=== PATIENT | female | born 2005 | race African-American/Black ===

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

== ENCOUNTER 2024-04-29 10:42 | Emergency (ER) | payer OTHER, SELFPAY ==
--- OUTSIDE RECORDS SUMMARY | 2024-04-29 10:45 | XMS_ITS | Data Portability ---
Author Organization [facility] Address [address] [place] [address] Care Team Providers Care Assignment Officer Name Role Phone SHYAM RUCKER Parts Picker Unavailable MERVAT JOSHI Primary Care Provider [phone] Assessment Encounter Date Assessment Date Assessment LastModified by Organization Details LastModified Time 03/19/2023 03/19/2023 Pt's case was discussed w/resident. Documentation was reviewed, and I agree w/resident's note. Dr. Byron Not available 03/23/2023 06:40:30 11/19/2023 11/19/2023 Pt's case was discussed w/resident. Documentation was reviewed, and I agree w/resident's note. Dr. Byron Not available 11/25/2023 21:50:54 12/10/2023 12/10/2023 Pt's case was discussed w/resident. Documentation was reviewed, and I agree w/resident's note. Dr. Byron Not available 12/16/2023 12:24:53 Plan of Treatment Reminders Order Date Submit Date Provider Last Modified By Organization Details Last Modified Time Details Appointments None recorded. Lab test, urine 2022 023 [email or web address] In-Office Order, Internal Use Only DO Not Attach Compendium DO Not Attach Compendium, Do Not Delete/merge, [id number] 22:24:43 chlamydia trachomatis + neisseria gonorrhoeae + trichomonas vaginalis DNA panel, JOHN+probe, unspecified specimen 2022 023 JUAN [facility], [address], [address], [place], [address], 3 03:08:53 HbA1c (hemoglobin A1c), blood 2022 023 [email or web address] In-Office Order, Internal Use Only DO Not Attach Compendium DO Not Attach Compendium, Do Not Delete/merge, [id number] 3 15:35:55 test, urine 2023 024 JUAN In-Office Order, Internal Use Only DO Not Attach Compendium DO Not Attach Compendium, Do Not Delete/merge, [id number] 4 17:19:12 RPR (rapid plasma reagin), serum 2023 024 [email or web address] e1 [facility], [address], [address], [place], [address], 4 09:19:51 HIV 1 + 2, meaningful use set 2023 024 [email or web address] e1 [facility], [address], [address], [place], [place], [address], 4 09:19:51 HBsAg (hepatitis B surface Ag), EIA, serum 2023 024 [email or web address] e1 [facility], [address], [address], [place], [address], 4 09:19:51 Hepatitis C IgG Ab, qual, serum 2023 024 [email or web address] e1 [facility], [address], [address], [place], [address], 4 09:19:52 vaginal pathogens panel, JOHN+probe, vaginal fluid 2023 024 JUAN [facility], [address], [address], [place], [address], 4 20:08:50 neisseria gonorrhoeae rRNA, QL, PCR, nasopharynx 2023 024 [place] [facility], [address], [address], [place], [address], 4 06:17:14 vaginal pathogens panel, JOHN+probe, vaginal fluid 2023 024 [place] [facility], [address], [address], [place], [address], 4 06:17:16 Referral None recorded. Procedures None recorded. Surgeries None recorded. Imaging None recorded. Medication Orders Nextstellis 3 mg-14.2 mg (28) tablet 2022 023 [email or web address] [email or web address] [id number], [address] , [place], [place], [id number], 4 19:34:52 Nextstellis 3 mg-14.2 mg (28) tablet 2023 024 [id number], [address] , [place], [place], [id number], 4 19:34:59 drospirenon e 3 mg-ethinyl estradiol 0.03 mg tablet 2023 024 [id number], [address] , [place], [place], [id number], 4 17:25:58 Patient TargetsNo targets recorded. Patient Instructions Encounter Date Encounter Id Patient Instructions Last Modified By Organization Details Last Modified Time 08/04/2022 [id number] Becky KOENIG Discussed with Lyn Rucker PA-C [email or web address] Not available 08/04/2022 16:31:23 03/19/2023 [id number] A healthy lifestyle: care instructions [email or web address] Not available 03/19/2023 16:20:53 06/08/2023 [id number] A healthy lifestyle: care instructions [email or web address] Not available 06/08/2023 15:34:47 Attending Physician Addendum I did not personally see or examine the patient with the resident. I was physically present to provide indirect supervision through entire encounter. I have reviewed the documentation and agree with the history, physical findings, work-up, and medical decision making as recorded. Isi Bella MD [email or web address] Not available 06/21/2023 16:39:24 Reason for Referral None Reported. Results Created Date Observation Date Name Description Value Unit Range Abnormal Flag Note LastModifiedBy Organization Detail LastModifiedTime 08/05/1908/06/2022 CT, NG, TRICH VAG BY JOHN chlamydia by JOHN Negati ve negati ve Not Available [facility] ([facility] [place] [place] [facility] [address] [place], [address], 08/06/2022 03:08:53 08/05/19 23 08/06/2022 CT, NG, TRICH VAG BY JOHN gonococcus by JOHN Negati ve negati ve Not Available [facility] ([facility] [place] [place] [facility] [address] [place], [address], 08/06/2022 03:08:53 08/05/19 23 08/06/2022 CT, NG, TRICH VAG BY JOHN trich vag by JOHN Negati ve negati ve Not Available [facility] ([facility] [place] [place] [facility] [address] [place], [address], 08/06/2022 03:08:53 08/05/19 23 08/04/2022 pregn jordyn test, urine HCG negati ve Not Available In-Office Order Internal Use Only DO Not Attach Compendium DO Not Attach Compendium, Do Not Delete/merge, [id number] 08/04/2022 16:22:29 03/19/20 23 03/19/2023 HbA1c (hemo globi n A1c), blood HbA1c 5.8 Not Available In-Office Order Internal Use Only DO Not Attach Compendium DO Not Attach Compendium, Do Not Delete/merge, [id number] 03/19/2023 15:17:25 06/08/19 24 06/08/2023 pregn jordyn test, urine HCG negati ve Not Available In-Office Order Internal Use Only DO Not Attach Compendium DO Not Attach Compendium, Do Not Delete/merge, [id number] 06/08/2023 15:34:21 11/20/19 24 11/22/2023 NUSWA B VAGIN ITIS PLUS (VG+) atopobium vaginae MODERA TE - 1 score Not Available [facility] ([facility] [place] [place] [facility] [address] [facility], [place], [address], 11/22/2023 20:08:50 11/20/19 24 11/22/2023 NUSWA B VAGIN ITIS PLUS (VG+) bvab 2 MODERA TE - 1 score Not Available [facility] ([facility] [place] [place] [facility] [address] [facility], [place], [address], 11/22/2023 20:08:50 11/20/19 24 11/22/2023 NUSWA B VAGIN ITIS PLUS (VG+) megasphaera 1 HIGH - 2 score abnormal Calcu late total score by berenice shelton the 3 indiv idual bacte rial vagin osis (BV) marke r score s toget her. Total score is inter prete d as follo ws: Total score 0-1: Indic ates the absen ce of BV. Total score 2: Indet ermin ate for BV. Addit ional clini andres data shoul d be evalu ated to estab carmelita a diagn osis. Total score 3-6: Indic ates the prese nce of BV. Not Available [facility] ([facility] [place] [place] [facility] [address] [facility], [place], [address], 11/22/2023 20:08:50 11/20/19 24 11/22/2023 NUSWA B VAGIN ITIS PLUS (VG+) steven albicans, JOHN NEGATI VE negati ve Not Available [facility] ([facility] [place] [place] [facility] [address] [facility], [place], [address], 11/22/2023 20:08:50 11/20/1911/22/2023 NUSWA B VAGIN ITIS PLUS (VG+) steven glabrata, JOHN NEGATI VE negati ve Not Available [facility] ([facility] [place] [place] [facility] [address] [facility], [place], [address], 11/22/2023 20:08:50 11/20/19 24 11/22/2023 NUSWA B VAGIN ITIS PLUS (VG+) trich vag by JOHN NEGATI VE negati ve Not Available [facility] ([facility] [place] [place] [facility] [address] [facility], [place], [address], 11/22/2023 20:08:50 11/20/19 24 11/22/2023 NUA B VAGIN ITIS PLUS (VG+) chlamydia trachomatis, JOHN POSITI VE negati ve abnormal Not Available [facility] ([facility] [place] [place] [facility] [address] [facility], [place], [address], 11/22/2023 20:08:50 11/20/1911/22/2023 NUA B VAGIN ITIS PLUS (VG+) neisseria gonorrhoeae, JOHN NEGATI VE negati ve Not Available [facility] ([facility] [place] [place] [facility] [address] [facility], [place], [address], 11/22/2023 20:08:50 12/10/19 24 12/13/2023 GC JOHN, PHARY NGEAL N. gonorrhoeae, JOHN, pharyn NEGATI VE negati ve Not Available [facility] ([facility] [place] [place] [facility] [address] [place], [address], 12/14/2023 06:17:14 12/10/1912/12/2023 NUA B VAGIN ITIS PLUS (VG+) atopobium vaginae LOW - 0 score Not Available [facility] ([facility] [place] [place] [facility] [address] [place], [address], 12/14/2023 06:17:16 12/10/19 24 12/12/2023 NUA B VAGIN ITIS PLUS (VG+) bvab 2 LOW - 0 score Not Available [facility] ([facility] [place] [place] [facility] [address] [facility], [place], [address], 12/14/2023 06:17:16 12/10/19 24 12/12/2023 NUA B VAGIN ITIS PLUS (VG+) megasphaera 1 LOW - 0 score Calcu late total score by berenice g the 3 indiv idual bacte rial vagin osis (BV) marke r score s toget her. Total score is inter prete d as follo ws: Total score 0-1: Indic ates the absen ce of BV. Total score 2: Indet ermin ate for BV. Addit ional clini andres data shoul d be evalu ated to estab carmelita a diagn osis. Total score 3-6: Indic ates the prese nce of BV. Not Available [facility] ([facility] [place] [place] [facility] [address] [facility], [place], [address], 12/14/2023 06:17:16 12/10/19 24 12/12/2023 NUA B VAGIN ITIS PLUS (VG+) steven albicans, JOHN NEGATI VE negati ve Not Available [facility] ([facility] [place] [place] [facility] [address] [facility], [place], [address], 12/14/2023 06:17:16 12/10/19 24 12/12/2023 NUA B VAGIN ITIS PLUS (VG+) steven glabrata, JOHN NEGATI VE negati ve Not Available [facility] ([facility] [place] [place] [facility] [address] [place], [address], 12/14/2023 06:17:16 12/10/19 24 12/13/2023 NUA B VAGIN ITIS PLUS (VG+) trich vag by JOHN NEGATI VE negati ve Not Available [facility] ([facility] [place] [place] [facility] [address] [facility], [place], [address], 12/14/2023 06:17:16 12/10/19 24 12/13/2023 NUSWA B VAGIN ITIS PLUS (VG+) chlamydia trachomatis, JOHN POSITI VE negati ve abnormal Not Available [facility] ([facility] [place] [place] [facility] [address] [facility], [place], [address], 12/14/2023 06:17:16 12/10/19 24 12/13/2023 NUSWA B VAGIN ITIS PLUS (VG+) neisseria gonorrhoeae, JOHN NEGATI VE negati ve Not Available [facility] ([facility] [place] [place] [facility] [address] [facility], [place], [address], 12/14/2023 06:17:16 Result Notes None recorded. Problems Name Problem SNOMED Code Status Onset Date Resolution Date Notes Provider Name and Address Organization Details Recorded Time Vitamin D deficienc y 18164146 Active 2018 MERVAT JOSHI DO Attn: Ambrosio shelton,[address] [place], [address], [place] [facility] 3 23:19:00 Polycysti c ovary syndrome 160559325 Active 2022 MERVAT JOSHI DO Attn: Ambrosio cat,[address] [place], [address], [place] [facility] 3 14:49:40 Chlamydia l infection 282547571 Completed 202205/29/2022 Treated with doxy. EFRAIN 07/2022 MERVAT JOSHI DO Attn: Andreain g,[address] [place], [address], [place] [facility] 3 23:23:15 Upper respirato ry infection 97777524 Completed 07/09/2017 MERVAT JOSHI DO Attn: Ambrosio g,[address] [place], [address], [place] [facility] 3 23:23:22 Obesity 067739042 Active MERVAT JOSHI DO Attn: Ambrosio shelton,[address], [place], [address], [facility] - [facility] 3 23:19:03 Dyslipide luis 883010993 Active MERVAT JOSHI DO Attn: Ambrosio shelton,[address], [place], [address], [facility] - [facility] 3 23:18:58 Anovulato ry 822571039 Active 2016 MERVAT JOSHI DO Attn: Ambrosio shelton,[address] [facility], [place], [address], [facility] - [facility] 3 23:19:05 Problem Notes None recorded. Medical Equipment None Reported. Allergies No known drug allergies Medications Name Sig Start Date Stop Date Status Note LastModified by Organization Details LastModified Time multivitami n tablet Take 1 tablet every day by oral route. 05/25 completed Not Available Not Available Not Available metformin 500 mg tablet TAKE 1 TABLET BY MOUTH TWICE DAILY 05/29 completed Not Available Not Available Not Available fluconazole 200 mg tablet TAKE 1 TABLET BY MOUTH TODAY AND THEN TAKE THE 2ND TABLET AFTER ALL ANTIBIOTI CS COMPLETED 11/18 completed Not Available Not Available Not Available penicillin V potassium 500 mg tablet TAKE 1 TABLET BY MOUTH TWICE DAILY FOR 10 DAYS 11/18 completed Not Available Not Available Not Available metronidazo le 500 mg tablet TAKE 1 TABLET BY MOUTH EVERY 12 HOURS FOR 7 DAYS FOR BACTERIAL VAGINOSIS active Not Available Not Available No t Available sulfamethox azole 800 mg-trimetho prim 160 mg tablet 04/26 completed Not Available Not Available Not Available amoxicillin 500 mg tablet TAKE 2 TABLETS BY MOUTH DAILY FOR 10 DAYS 03/19 completed Not Available Not Available Not Available amoxicillin 875 mg tablet 07/09 completed Not Available Not Available Not Available doxycycline monohydrate 100 mg capsule TAKE 1 CAPSULE BY MOUTH TWICE DAILY WITH MEALS FOR 7 DAYS FOR CHLAMDYIA INFECTION active Not Available Not Available No t Available progesteron e micronized 200 mg capsule Take 2 capsules every day by oral route at bedtime for 10 days. 12/26 completed Not Available Not Available Not Available ergocalcife rol (vitamin D2) 1,250 mcg (50,000 unit) capsule Take 1 capsule every week by oral route. 01/02 completed Not Available Not Available Not Available drospirenon e 3 mg-ethinyl estradiol 0.03 mg tablet TAKE 1 TABLET BY MOUTH EVERY DAY active Not Available Not Available No t Available nitrofurant oin monohydrate /macrocryst als 100 mg capsule TAKE 1 CAPSULE BY MOUTH TWICE DAILY FOR 5 DAYS 11/18 completed Not Available Not Available Not Available calcium 600 mg (as carbonate)- vitamin D3 20 mcg (800 unit) tablet Take 1 tablet twice a day by oral route for 30 days. 05/25 completed Not Available Not Available Not Available ID NOW COVID-19 Test Kit TEST DIRECTED TODAY 05/29 completed Not Available Not Available Not Available Nextstellis 3 mg-14.2 mg (28) tablet TAKE 1 TABLET BY MOUTH EVERY DAY 11/24 completed Not Available Not Available Not Available Vitals Date Recorded Body height Provider Name an d Address Organization Details Last Updated DateTime 08/04/2022 170.18 cm Brielle Angeles [place] [facility] 2022 15:59:28 Date Recorded Body mass index (BMI) Percentile per age and sex Body mass index (BMI) Body weight Provider Name and Address Organization Details Last Updated DateTime 08/04/2022 98 % 39.9 kg/m2 029669.05 g Brielle Angeles [place] [facility] 08/04/2022 15:59:37 Date Recorded Body height Provider Name an d Address Organization Details Last Updated DateTime 03/19/2023 170.18 cm Carola Amaro [place] [facility] 2022 14:28:34 Date Recorded Body mass index (BMI) Body mass index (BMI) Percentile per age and sex Body weight Provider Name and Address Organization Details Last Updated DateTime 03/19/2023 43.3 kg/m2 99 % 950364.89 g Carola Amaro [place] [facility] 03/19/2023 14:28:43 Date Recorded Heart rate Provider Name an d Address Organization Details Last Updated DateTime 03/19/2023 82 /min Carola HolcombbinJOHN pineda [facility] 2022 14:29:00 Date Recorded Body temperature Provider Name a nd Address Organization Details Last Updated DateTime 03/19/2023 97.8 [degF] Carola HolcombbinJOHN pineda [facility] 03/19/2023 14:29:05 Date Recorded Respiratory rate Provider Name a nd Address Organization Details Last Updated DateTime 03/19/2023 16 /min Carola Rollinss JOHN [facility] 03/19/2023 14:29:08 Date Recorded Oxygen saturation Oxygen saturation in Arterial blood by Pulse oximetry Provider Name and Address Organization Details Last Updated DateTime 03/19/2023 97.8 % 97.8 % Carola Rollinss JOHN [facility] 03/19/2023 14:29:13 Date Recorded Body height Provider Name an d Address Organization Details Last Updated DateTime 06/08/2023 170.18 cm Taisha Allred [place] [facility] 06/08/2023 14:56:10 Date Recorded Body mass index (BMI) Percentile per age and sex Body mass index (BMI) Provider Name and Address Organization Details Last Updated DateTime 06/08/2023 99 % 44.7 kg/m2 Taisha Allred [place] [facility] 06/08/2023 14:56:39 Date Recorded Body weight Provider Name an d Address Organization Details Last Updated DateTime 06/08/2023 921766.53 g Taisha Allred [place] [facility] 06/08/2023 14:56:40 Date Recorded Body temperature Provider Name a nd Address Organization Details Last Updated DateTime 06/08/2023 98 [degF] Taisha Allred [place] [facility] 06/08/2023 14:56:45 Date Recorded Heart rate Provider Name an d Address Organization Details Last Updated DateTime 06/08/2023 108 /min Taisha Allred [place] [facility] 05/27 14:57:06 Date Recorded Oxygen saturation Oxygen saturation in Arterial blood by Pulse oximetry Provider Name and Address Organization Details Last Updated DateTime 06/08/2023 98 % 98 % Taisha [place]red [place] [facility] 06/08/2023 14:57:11 Date Recorded Respiratory rate Provider Name a nd Address Organization Details Last Updated DateTime 06/08/2023 18 /min Taisha [place] [facility] 06/08/2023 14:57:30 Date Recorded Body height Provider Name an d Address Organization Details Last Updated DateTime 11/19/2023 170.18 cm MAXINE Doll [place] [facility] 2023 17:04:11 Date Recorded Body mass index (BMI) Percentile per age and sex Body mass index (BMI) Body weight Provider Name and Address Organization Details Last Updated DateTime 11/19/2023 99 % 45 kg/m2 655748.81 g Mae MylessolisMAXINE [place] [facility] 11/19/2023 17:04:22 Date Recorded Respiratory rate Provider Name a nd Address Organization Details Last Updated DateTime 11/19/2023 16 /min Maemaverick MylessolisMAXINE [place] [facility] 11/19/2023 17:04:50 Date Recorded Body temperature Provider Name a nd Address Organization Details Last Updated DateTime 11/19/2023 98.2 [degF] Mae MylessolisMAXINE [place] [facility] 11/19/2023 17:10:46 Date Recorded Oxygen saturation Oxygen saturation in Arterial blood by Pulse oximetry Provider Name and Address Organization Details Last Updated DateTime 11/19/2023 96 % 96 % Mae MylessolisMAXINE [place] [facility] 11/19/2023 17:10:47 Date Recorded Heart rate Provider Name an d Address Organization Details Last Updated DateTime 11/19/2023 99 /min Mae MylessolisMAXINE [place] [facility] 2023 17:11:32 Date Recorded Body height Provider Name an d Address Organization Details Last Updated DateTime 12/10/2023 170.18 cm Mae SharsolisMAXINE [place] [facility] 2023 15:17:00 Date Recorded Respiratory rate Provider Name a nd Address Organization Details Last Updated DateTime 12/10/2023 18 /min Mae SharsolisMAXINE [place] [facility] 12/10/2023 15:17:14 Date Recorded Body mass index (BMI) Body mass index (BMI) Percentile per age and sex Body weight Provider Name and Address Organization Details Last Updated DateTime 12/10/2023 45.5 kg/m2 99 % 683950.3 g Mae Mylessolis Liu [facility] 12/10/2023 15:17:18 Date Recorded Heart rate Provider Name an d Address Organization Details Last Updated DateTime 12/10/2023 88 /min Mae Woodard [facility] 2023 15:22:10 Date Recorded Body temperature Provider Name a nd Address Organization Details Last Updated DateTime 12/10/2023 98 [degF] Mae Woodard [facility] 12/10/2023 15:22:15 Date Recorded Oxygen saturation Oxygen saturation in Arterial blood by Pulse oximetry Provider Name and Address Organization Details Last Updated DateTime 12/10/2023 99 % 99 % Mae Woodard [facility] 12/10/2023 15:22:17 Date Recorded Systolic blood pressure Diastolic blood pressure Provider Name and Address Organization Details Last Updated DateTime 08/04/2022 114 mm[Hg] 82 mm[Hg] Brielle Angeles [place] [facility] 08/04/2022 16:02:16 Date Recorded Systolic blood pressure Diastolic blood pressure Provider Name and Address Organization Details Last Updated DateTime 03/19/2023 141 mm[Hg] 84 mm[Hg] Carola Amaro [place] [facility] 03/19/2023 14:28:48 Date Recorded Systolic blood pressure Diastolic blood pressure Provider Name and Address Organization Details Last Updated DateTime 03/19/2023 119 mm[Hg] 84 mm[Hg] Carola Amaro [place] [facility] 03/19/2023 15:17:10 Date Recorded Systolic blood pressure Diastolic blood pressure Provider Name and Address Organization Details Last Updated DateTime 06/08/2023 139 mm[Hg] 79 mm[Hg] Taisha Allred [place] [facility] 06/08/2023 14:57:05 Date Recorded Systolic blood pressure Diastolic blood pressure Provider Name and Address Organization Details Last Updated DateTime 11/19/2023 134 mm[Hg] 84 mm[Hg] MAXINE Doll [facility] 11/19/2023 17:11:30 Date Recorded Systolic blood pressure Diastolic blood pressure Provider Name and Address Organization Details Last Updated DateTime 12/10/2023 117 mm[Hg] 80 mm[Hg] MAXINE Doll [facility] 12/10/2023 15:22:07 Social History Question Answer Notes LastModified by Organizat ion Details LastModified Time Tobacco Smoking Status Never Smoker JOHN Vela, [facility] 03/12/2014 14:26:04 Do You Have An Advance Directive? No Information n ot available 03/19/2023 What Is Your Level Of Alcohol Consumption? None Information not available 11/04/2016 Is Blood Transfusion Acceptable In An Emergency? Yes Information not available 11/04/2016 What Is Your Level Of Caffeine Consumption? Heavy Frappe Information not available 12/06/2020 How Much Tobacco Do You Chew? None Information not available 11/04/2016 In The 14 Days Before Symptom Onset, Have You Had Close Contact With A Laboratory-confirm ed COVID-19 While That Case Was Ill? No Information n ot available 03/19/2023 In The 14 Days Before Symptom Onset, Have You Had Close Contact With A Person Who Is Under Investigation For COVID-19 While That Person Was Ill? No Information not available 03/19/2023 Have You Been To An Area Known To Be High Risk For COVID-19? No Information not available 03/19/2023 Are You Currently Employed? No Information not available 11/04/2016 What Type Of Diet Are You Following? REGULAR Information n ot available 11/04/2016 Which Illicit Or Recreational Drugs Have You Used? Pt. States None Information not available 11/04/2016 What Is The Highest Grade Or Level Of School You Have Completed Or The Highest Degree You Have Received? [id number] 2020 [email or web address] Information not available 12/06/2020 What Is Your Home Situation? Mother Information not available 12/06/2020 What Was The Date Of Your Most Recent Tobacco Screening? 12/10/2023 Information not available 12/10/2023 How Many Children Do You Have? 0 Information not available 11/04/2016 What Is Your Relationship Status? Single Information not available 11/04/2016 Are You Sexually Active? Yes Information not available 03/19/2023 Do You Have Smoke And Carbon Monoxide Detectors In Your Home? Yes Information not available 12/26/2021 Are You Passively Exposed To Smoke? Yes [email or web address] Information no t available 03/12/2014 Do You Use Any Illicit Or Recreational Drugs? No Information not available 12/26/2021 Do You Use Sunscreen Routinely? No Information not available 11/04/2016 Has Tobacco Cessation Counseling Been Provided? No Information not available 03/19/2023 On What Date Was Tobacco Cessation Counseling Provided? 12/10/2023 Information not available 12/10/2023 Do You Or Have You Ever Used Any Other Forms Of Tobacco Or Nicotine? No Information not available 12/26/2021 Sex: Female Functional Status None recorded. Mental Status None recorded. Family History Relationship Description Onset Age of this Age Resolved Age Notes LastModified by Organization Details LastModified Time Mother Obesity [email or web address] Not available 06/25/2016 11:37:02 Mother Diabetes mellitus [email or web address] Not available 03/19 14:31:28 Mother Hypercholest erolemia erobbinsma Not available 03/19 14:31:42 Mother Hypertensive disorder [email or web address] Not available 03/19 14:31:49 Notes:NO family hx of cancer 03/19/23 no new 06/08/23 Medical History Condition Response Other N High Blood Pressure N Breast Cancer N Thyroid Problems N Kidney or Bladder Problems N GI Problems N Depression N Blood Clots N Lung Disease N Acne N Breast Problem N Eating Disorder N Anemia N Anesthesia Complications N Headaches/Migraines N Anxiety Disorder N Diabetes N Ovarian Cancer N Muscle, Joint, or Bone Problems N Blood Transfusions N Seizures/Epilepsy N Polyps N Infertility N Acid Reflux (GERD) N Cancer N Abuse/Domestic Violence N Asthma N Endometriosis N High Cholesterol N Hepatitis N Liver Disease N Heart Disease N Pre-Eclampsia N Osteoporosis N Gynecological History Statement/Question Response Flow Heavy Frequency of Cycle (Q days) 25 Date of LMP 11/28/2023 Sexually Active? Y Menses Monthly Y STIs/STDs N HPV Vaccine Y Duration of Flow (days) 3 Current Control Method BCPs Age at Menarche 9 LMP Definite Obstetrics History GPAL:G 0 P 0 0 0 0 Type Value Multiple Births 0 Full Term 0 Induced 0 Spontaneous 0 Premature 0 Living 0 Ectopics 0 Total 0 Immunizations Vaccine Type Date Status Note Provider Nam e and Address Organization Details Recorded Time COVID-19, mRNA, LNP-S, PF, 100 mcg/0.5mL dose or 50 mcg/0.25mL dose 1 completed MERVAT JOSHI DO Attn: Accounting,[address] [place], [address], [place] [facility] 03/19/2023 14:52:00 COVID-19, mRNA, LNP-S, PF, 100 mcg/0.5mL dose or 50 mcg/0.25mL dose 2 completed MERVAT OJSHI DO Attn: Accounting,[address] [place], [address], [place] [facility] 03/19/2023 14:52:00 HPV9 6 completed Not Available [facility] 04/15/2019 02:32:59 Influenza, split virus, quadrivalent, PF 6 completed Not Available [facility] 04/15/2019 02:32:59 Hib, unspecified formulation 4 completed MERVAT JOSHI DO Attn: Accounting[address] [place], [address], [place] [facility] 03/19/2023 14:52:00 Hib, unspecified formulation 5 completed MERVAT JOSHI DO Attn: Accounting,[address] [place], [address], [place] [facility] 03/19/2023 14:52:00 Hib, unspecified formulation 4 completed MERVAT JOSHI DO Attn: Accounting,[address] [place], [address], [place] [facility] 03/19/2023 14:52:00 Hib, unspecified formulation 4 completed MERVAT JOSHI DO Attn: Accounting,[address], [place], [address], [place] [facility] 03/19/2023 14:52:00 HPV9 5 completed MERVAT JOSHI DO Attn: Accounting,[address], [place], [address], [place] [facility] 03/19/2023 14:52:00 pneumococcal conjugate PCV 7 4 completed MERVAT JOSHI DO Attn: Accounting,[address] [facility], [place], [address], [place] [facility] 03/19/2023 14:52:00 pneumococcal conjugate PCV 7 4 completed MERVAT JOSHI DO Attn: Accounting,[address] [facility], [place], [address], [place] [facility] 03/19/2023 14:52:00 pneumococcal conjugate PCV 7 4 completed MERVAT JOSHI DO Attn: Accounting,[address] [facility], [place], [address], [place] [facility] 03/19/2023 14:52:00 Hep A, pediatric, unspecified formulation 9 completed MERVAT JOSHI DO Attn: Accounting,[address] [facility], [place], [address], [place] [facility] 03/19/2023 14:52:01 meningococcal MCV4P 5 completed MERVAT JOSHI DO Attn: Accounting,[address] [facility], [place], [address], [place] [facility] 03/19/2023 14:52:01 DTaP, unspecified formulation 5 completed MERVAT JOSHI DO Attn: Accounting,[address] [facility], [place], [address], [place] [facility] 03/19/2023 14:52:01 DTaP-Hep B-IPV 4 completed MERVAT JOSHI DO Attn: Accounting,[address] [facility], [place], [address], [place] [facility] 03/19/2023 14:52:01 DTaP-Hep B-IPV 4 completed MERVAT JOSHI DO Attn: Accounting,[address] [facility], [place], [address], [place] [facility] 03/19/2023 14:52:01 DTaP-Hep B-IPV 4 completed MERVAT JOSHI DO Attn: Accounting,[address] [facility], [place], [address], [place] [facility] 03/19/2023 14:52:01 Influenza, live, quadrivalent, intranasal 3 completed MERVAT JOSHI DO Attn: Accounting,[address] [facility], [place], [address], [place] [facility] 03/19/2023 14:52:01 DTaP,IPV,Hib,HepB 4 completed MERVAT JOSHI DO Attn: Accounting,[address] [facility], [place], [address], [place] [facility] 03/22/2023 23:06:29 DTaP,IPV,Hib,HepB 4 completed MERVAT JOSHI DO Attn: Accounting,[address] [facility], [place], [address], [place] [facility] 03/22/2023 23:06:29 DTaP,IPV,Hib,HepB 4 completed MERVAT JOSHI DO Attn: Accounting,[address] [facility], [place], [address], [place] [facility] 03/22/2023 23:06:29 Hep A, ped/adol, 2 dose 3 completed MERVAT JOSHI DO Attn: Accounting,[address] [facility], [place], [address], [place] [facility] 03/19/2023 14:52:01 Hep A, ped/adol, 2 dose 9 completed MERVAT JOSHI DO Attn: Accounting,[address], [place], [address], [place] [facility] 03/22/2023 23:06:29 MMR 9 completed Lashell Castillo [place], [place] [facility] 03/28/2014 15:00:33 DTaP-IPV 9 completed MERVAT JOSHI DO Attn: Accounting,[address], [place], [address], [place] [facility] 03/22/2023 23:06:28 Influenza, split virus, quadrivalent, PF 9 completed Not Available [facility] 04/15/2019 02:37:05 meningococcal MCV4P 0 completed Yolis Marie MD Attn: Accounting,[address] [facility], [place], [address], [place] [facility] 04/26/2019 13:06:51 MMR 5 completed MERVAT JOSHI DO Attn: Accounting,[address] [facility], [place], [address], [place] [facility] 03/19/2023 14:52:00 varicella 5 completed MERVAT JOSHI DO Attn: Accounting,[address] [facility], [place], [address], [place] [facility] 03/19/2023 14:52:00 Tdap 5 completed MERVAT JOSHI DO Attn: Accounting,[address] [facility], [place], [address], [place] [facility] 03/19/2023 14:52:00 varicella 5 completed MERVAT JOSHI DO Attn: Accounting,[address] [facility], [place], [address], [place] [facility] 03/19/2023 14:52:00 meningococcal MCV4, unspecified formulation 5 completed MERVAT JOSHI DO Attn: Accounting,[address] [facility] [place], [address], [facility] 03/22/2023 23:06:29 Influenza, split virus, quadrivalent, PF 4 completed Not Available [facility] 04/15/2019 02:31:46 Past Encounters Encounter ID Performer Location Encounter Start Date Encounter Closed Date Diagnosis/Indication Diagnosis SNOMED-CT Code Diagnosis ICD10 Code Diagnosis Note [id number] Jay (Peds) [address] [place] [id number] 03/12/2014 14:09:18 03/13/2014 14:20:24 Upper respiratory infection 45328140 Supportive care discussed. May return to school. RTC if new/worsen ing symptoms or if symptoms not improved in 2 weeks. Administra tion of influenza vaccine 61969731 Obesity 381100322 Acanth osis Nigricans. Labs ordered at [facility] last year but not drawn. Gave new lab order. Patient needs to schedule WCC in 1-2 weeks (overdue) and will discuss results at that appointmen t. [id number] Letty Thompson (Peds) [address] [place] [phone] 04/12/2014 15:51:36 04/13/2014 13:51:29 Dyslipidemia 253736875 Spent 25-30 minutes educating family on secondary effects of obesity and discussing diet and education plan. Limit sugary drinks to 8 oz per day and drink more water and skim milk. Exercise goal 60 min per day. RTC in 6 weeks for weight check and 3 months for labs. [id number] Letty Thompson (Peds) [address] [place] [phone] 03/05/2016 11:06:34 03/06/2016 16:15:41 Well child 167064833 Z00.129 Obesity 740251505 E66.9 Acanthosis Nigricans. Labs ordered at [facility] last year but not drawn. Gave new lab order. Patient needs to schedule WCC in 1-2 weeks (overdue) and will discuss results at that appointmen t. Dyslipidemia 394232468 E 78.5 Spent 25-30 minutes educating family on secondary effects of obesity and discussing diet and education plan. Limit sugary drinks to 8 oz per day and drink more water and skim milk. Exercise goal 60 min per day. RTC in 6 weeks for weight check and 3 months for labs. [id number] Letty Elise Jay (Peds) [address] [place] [address] 06/25/2016 10:31:16 06/30/2016 15:19:26 Dyslipidemia 149895772 E78.5 Obesity 256286254 E66.9 Acanthosis Nigricans. [id number] Brian Thompson (DRUG DISCOVERY INFORMATICS SPECIALIST) [address] [place] [phone] 11/04/2016 15:29:37 11/04/2016 17:07:09 Anovulatory 498216318 N97.0 Educated mother and patient that this is normal at this age. Consider BC in the future if cycles do not regulate. Family antonia nning surveillance 159518669 Z30.09 [id number] EMMY Avila (Peds) [address] [place] [phone] 11/09/2016 08:52:17 11/09/2016 14:38:11 History and physical examination, school 07483810 Z02.0 School and sports physical compelted and given to mother Obesity 629182545 E66.9 Extensive conversati on with the family on the following topics: healthy diet (including increasing fruits, vegetables , legumes) and decreasing processed foods, prepared foods, excessivel y fatty/salt y/sugary foods.Advi sed 60 minutes of exercise, 5 days per week.Expla ined to the family that the changes should not just be made for the patient, but for the whole family.Fol low up in 3 months and will repeat labsNo fried foods Anovulatory 056414724 N9 7.[address] La [id number] MD Jay Chacko (Peds) [address] [place] [phone] 07/09/2017 15:02:49 07/09/2017 16:39:29 Well child 650998692 Z00.129 Well-appea ring [age]yo AAF, with obesity as below.IUTD .Discussed age-approp riate anticipato ry guidance per HPI/ROS.RT C yearly for WCC. Dyslipidemia 734277865 E 78.5 Obesity 362239413 E66.9 Continued excessive weight gain over many years now, previous labs showed elevated cholestero l and HbA1c - would expect to be higher now with continued poor eating habits.Rev iewed growth charts with pt and mom (copy given), health risks of continued obesity.Re viewed diet in detail and discussed ways to improve on.Also encouraged to do at least little exercises daily (e.g. dance with singing). Hyperglycemia 92003962 R 73.9 Increased from 5.6 - 5.8 over 3 yrs, and would expect to be higher now with continued wt gain and poor eating habits. [id number] MD Jay Chacko [facility] (Peds) [address] [place] [address] 05/25/2018 09:52:28 05/26/2018 10:32:35 Well child 784655441 Z00.129 Pleasant 13y3mo AAF, with obesity as below.IUTD . [id number] Flu shot today.Disc ussed age-approp riate anticipato ry guidance per HPI/ROS.RT C yearly for WCC. Obesity 525572999 E66.9 Continues to gain excessive wt at steady rate, not much lifestyle changes.Re viewed wt/BMI trend, diet and activity hx with pt today.Per sister and mom's rec, pt willing to [facility] [employer] [facility] [employer] and promises to keep up with it.Obesity labs (ordered last yr) today, not fasting. Needs infl uenza immunization 514617529 Z23 Anovulatory 620409108 N9 7.0 ?2-3 years since menarche, still irregular, every 3-6 months?Pt advised to keep track of her cycles, and if not regular by end of this year, to return to OBGYN. [id number] MD Jay Chacko [facility] (Peds) [address] [place] [address] 04/26/2019 10:54:39 04/26/2019 11:51:33 Well child 006440397 Z00.129 Pleasant 14y3mo AAF, with obesity.Im proved BMI!#2 Menactra today - IUTD.Decli balaji flu shot. Discussed age-approp riate anticipato ry guidance per HPI/ROS.RT C yearly for WCC. Obesity 690030621 E66.9 7lb wt loss in 1 year and BMI 40.9 --> 38.9!Dieta ry changes (biggest is cutting down on soda), some physical activity via resuming PE/gym in school.Antonia ns to do discuss this year.Vicenta webb good work, and encouraged to cut down on juice also. Anovulatory 015949739 N9 7.0 ~3 years since menarche (thinks it was 11yo, not 9yo as previously reported?) . No regular cycle this past 1 year.No spotting. +monthly cramps. Pt prefers to see female provider, set up appt with Lyn here. Vitamin D deficiency 347 22408 E55.9 06/25/17: 12//19: 9.9 History an d physical examination, sports participation 139385890 Z02.5 Pre-sports physical form completed and 2 copies given (1 for home, 1 for school). [id number] ERVIN STEWART (DRUG DISCOVERY INFORMATICS SPECIALIST) [address] [place] [phone] 05/08/2019 15:48:46 05/09/2019 09:45:09 Secondary amenorrhea 306793698 N91.1 Discussed different causes such as hormone imbalances , HPO axis dysfunctio n, thyroid disorder, PCOS, obesity, , defects. F/u labs. Consider TVUS and/or progestin withdrawal test. RTC in 1-2 weeks to discuss lab results and next steps. [id number] MD Jay Chacko (Peds) [address] [place] [phone] 12/06/2020 09:46:26 12/06/2020 14:13:04 Well child 908326480 Z00.129 Pleasant 89f86we AAF, with obesity.IU TD.Discuss ed age-approp riate anticipato ry guidance per HPI/ROS. Obesity 795985724 E66.9 Gained back previously lost weight, BMI back to 40.No longer in sports, and drinking a lot of frappe, so excess sugary intake despite stopping juice & soda. Reviewed growth charts with pt and urged to find ways to cut down on sugar, skim milk or sugar substitute , etc; and stay active. Anovulatory 077323512 N9 7.0 No cycle since last year's visit, Apr 2019.Had lab w/u with FUR BLOWING MACHINE OPERATOR. Mom and pt unclear what next step plan was.Advise d to make f/u appt today. Vitamin D deficiency 347 24318 E55.9 17: 12//19: 9.9 History an d physical examination, school 30061271 Z02.0 School physical form completed and 2 copies given (1 for home, 1 for school). [id number] ERVIN STEWART (DRUG DISCOVERY INFORMATICS SPECIALIST) [address] [place] [address] 01/02/2021 10:46:48 01/06/2021 20:39:14 Obesity 074987249 E66.9 BMI 40.1. Diet high in fruits and vegetables . Limit fat, sugar, and processed foods. Exercise at least 30 minutes 5x/week. Secondary amenorrhea 156 523895 N91.1 Discussed causes and determinin g location (hypothala mus, pituitary, ovary, uterus). Labs 04/2019 relatively unremarkab le. Will get additional labwork and follow up with TVUS and progestin withdrawal test. Suspect most likely PCOS. Will follow up with results. [id number] ERVIN STEWART (DRUG DISCOVERY INFORMATICS SPECIALIST) [address] [place] [phone] 12/26/2021 12:04:14 12/29/2021 16:22:28 Polycystic ovary syndrome 935417396 E28.2 Pt evaluated for amenorrhea last year (01/02/21) and work-up revealed PCOS (US findings, HLD, insulin resistance ). Pt has not had menses since 2019. Now with hirsutism. Will repeat labs. Discussed PCOS management including metformin for prediabete s and ovulation induction, lifestyle changes, and hormones for endometria l protection . Will start metformin today and pt will RTC to discuss contracept ion. Informatio nal handout provided on options. [id number] ERVIN STEWART (DRUG DISCOVERY INFORMATICS SPECIALIST) [address] [place] [address] 05/29/2022 15:31:08 06/03/2022 15:55:42 Contraception care management 743213242 Z30.9 Discussed different control options with patient including R/B/A/I. Pt interested in OCPs. Rx Nextstelli s, counseled on use and SE. RTC in 3 months. Polycystic ovary syndrome 824296061 E28.2 Discussed PCOS management including lifestyle changes and hormones for endometria l protection . Starting OCPs as above. Venereal d isease screening 099502959 Z11.3 Routine screening, safe sex practices discussed. [id number] ERVIN STEWART (DRUG DISCOVERY INFORMATICS SPECIALIST) [address] [place] [address] 08/04/2022 15:53:36 08/12/2022 14:29:22 Contraception care 925001651 Z30.40 Patient started Nextstelli s 2 months ago with no complaints . She is having regular periods monthly and would like to continue OCPs. History of sexually transmitted disease 388588334 Z86.19 Positive for chlamydia 05/29/22 and patient did finish her doxycyclin e course. Patient is being tested again today. Safe sex practices discussed. Will notify with results. [id number] Virgilio Matthews MD Tessa 14 IM [address] [facility] [address] [place] [address] 03/19/2023 14:15:18 03/23/2023 11:21:40 Morbid obesity 674295889 E66.01 Healthy lifestyle encouraged including regular exercise of at least 150min per week, diet rich in plant based foods and low in added sugars, processed carbohydra reema, and high salt foods. Encouraged protein intake mostly with chicken and white fish and limited red meat. Contracept ion care management 005389792 Z30.9 Will renew her OCPCurrent ly sexually active with one partner and does not desire Polycystic ovary syndrome 256882067 E28.2 1. hirsutism - positive. Does not desire pharmacolo gic interventi on at this time2. Ovulatory dysfunctio n - positive. Currently on OCPs. Can consider starting Metformin. As for the amenorrhea , we will continue to monitor at this time. It is reassuring that she is still having cyclical symptoms. If this persists past 1 year, might need further evaluation .3. Cystic ovaries - positive. Pelvic US 01/2021 showed evidence of multiple ovarian cysts Discussed weight loss. She does not desire . Adult [facility] th examination 026381096 Z00.00 Substance Abuse {{negative screening* positive screening} }Anxiety: {{negative screening* positive screening} }Blood Pressure: {{wnl* nkechi vated decr eased}}Con traception : {{no method OCP * IUD cond om subderm al implant va ginal ring rhyth m}}Depress ion: {{negative screening* positive screening} }Diabetes Screen: hx of prediabete s, HbA1c today was 5.8%Folic Acid supplement ation/PNV: Counseled; {{taking n ot taking*}}I nterperson al/Domesti c violence screen: {{negative screening* positive screening} }BMI: {{wnl elev ated* decr eased}}; Counseling {{unwarran dalila receiv ed*}}Tobac co Use: {{negative screening* positive screening} }STI: Gonorrhea - neg 08/04/2022; Chlamydia - neg 08/04/2022; Hep B - needs; Hep C - needs; HIV - neg 03/05/2016; Syphillis - needsImmun izations {{recommen ded UTD*}} Pap: will need 01/2024Fol low-up when Pap smear needed. Prediabetes 589152029 R7 3.03 Hx of prediabete s in 11/2021 - 5.9%Today 5.8%Discus sed lifestyle interventi on and the initiation of Metformin but patient is unsure at this time Active or passive immunization 047219354 Z23 Needs for work1. Quantifero n TB GOLD PLUS2. Hepatitis B surface AB3. Measles, Mumps, Rubella4. Varicella Zoster V Ab, IgG Labs were ordered. Sent Pt. to lab and the FORMING ACID DUMPER had the original orders from Dr. Harding that were not in pt. chart. Deleted duplicate orders. [id number] MD Tessa Alan 14 [address] [facility] [address] [place] [address] 06/08/2023 14:47:18 06/23/2023 09:21:37 Obesity 492974814 E66.9 Contracept ion care management 014094279 Z30.9 - 18 yo old with PMH of PCOS, obesity, anovulatio n here to restart control- pt was on it previously with no issues and would like to restart the same contracept ion, will send prescripti on for Nextstelli s at this time- last had unprotecte d sex within the last week, did not want emergency contracept ion at this time- counseled on safe sex practices, did not want a STI/STD at this time but did want ot check for as she had recently had unprotecte d sex, preg test was negative- feels safe in [employer] ip and had no acute concerns/c omplaints at this time [id number] MD Tessa Montero 14 IM [address] [facility] [place] [address] 11/19/2023 16:56:44 11/26/2023 08:35:37 Contraception care management 609365076 Z30.9 Will change to different form of estrogenWe ight gain likely more related to ongoing stressReco mmend daily PNV Venereal d isease screening 595033197 Z11.3 Will check RPR, HIV, Hep B, Hep C, Chlamydia, Gonorrhea and TrichWill treat pending results [id number] MD Tessa Montero 14 IM [address] [facility] [place] [address] 12/10/2023 15:03:27 12/16/2023 16:03:58 Vaginal discharge 546006100 N89.8 Due to symptoms will check with nuswab and treat accordingl y. Dysphagia 30545348 R13.1 0 Discussed with patient likely causes at this time. Possible to be due to recently finished antibiotic s, or less likely related to STI infection. Will order pharyngeal swab today. Also counselled that if due to recent antibiotic s symptoms should resolve with adequate hydration. Discussed if symptoms do not improve within 2 weeks to let me know. At that time will consider Anti-reflu x medication . If no improvemen t from anti-reflu x medication will consider GI referral.W ill let me know in 2 weeks. WIll consider anti reflux medication s. Will then consider GI referral as last resort. Health Concerns Section Related Observation LastModified by Organization Detai ls LastModified Time None Recorded Concern Status LastModified by Organization Details LastModified Time None Recorded Advance Directives Directive N: Payers Encounter Date Sequence Insurance Name Policy Number Policy Rodriguez Covered Member ID Rodriguez Member ID Guarantor Name 08/04/2022 1 [facility] (MEDICAID HMO) [id number] 0003 Laura Holloway [id number] Shobha Kirkland 03/19/2023 1 [facility] (MEDICAID HMO) [id number] Laura Holloway [id number] Shobha Garcia 06/08/2023 1 [place] [facility] Laura Holloway [id number] Shobha Garcia 11/19/2023 1 [facility] (MEDICAID HMO) [id number] Laura Holloway [id number] Shobha Kirkland 12/10/2023 1 [facility] (MEDICAID HMO) [id number] 0003 Laura Holloway [id number] Shobha Garcia Notes Date Note Type Note Provider Name and Address Organization Details Recorded Time 08/04/2022 text/html Laura AvilezP0 is a 17 year old female with a history of PCOS presents in the office for a follow up after starting control and STI testing. She states that since starting Nextstellis, she has had heavy regular periods monthly and would like to continue with it. She finished her course of doxycycline for chlamydia infection and would like to be retested today along with a test. She states she noticed a foul odor from her discharge recently. She denies any dysuria, hematuria, abdominal pain, fever, pelvic pain, night sweats or fatigue. ERVIN STEWART Attn: Accounting,[address] [place], [address], [facility] 08/04/2022 22:38:43 03/19/2023 text/html 18 yo F with a p ast medical history of PCOS presenting to the clinic to establish care. She does not have any acute concerns at this time. She is doing well on her oral contraceptive. She does state that she has not had any bleeding during her menstrual cycles since August. She states that every month she gets the symptoms of a period including abdominal cramping like she is going to start her period but she never does bleed. She has a significant history of anovulation. Before starting on oral contraceptives, patient did not have a menstrual cycle for 5 years. Virgilio Matthews MD Attn: Accounting,[address] [facility], [place], [address], [facility] 03/23/2023 06:40:52 06/08/2023 text/html 18 yo pt with no acute concerns or complaints here to restart control which she had previously been on but had to stop due to insurance coverage issues,s he has been off medication for about a week and has noticed slight weight gain and bloating since being off it, denies any cramping, spotting, abnormal discharge . Isi Bella MD Attn: Accounting,[address] [facility], [place], [address], [facility] 06/21/2023 16:40:00 11/19/2023 text/html 18 yo F presents to clinic for OCP discussion Feels like she is gaining weight with her current OCP Recently went through break up with boyfriend of 1 year. She was cheated on and wants to get STI testing. Virgilio Matthews MD Attn: Accounting,[address] [facility], [place], [address], [facility] 11/25/2023 21:51:08 12/10/2023 text/html Laura 18 yo F with pmh of PCOS presenting for vaginal symptoms. Tested + for chlamydia and BV 11/19, Took metronidazole and doxycycline for 7 days. Symptoms resolved for 2-3 days but symptoms came back and same as before and also new onset dysphagia. Compliant with her medications at the time. Abdominal pain, vaginal discharge is yellow, pruritis, dysphagia with food and liquids. < 7 days. Consistent symptoms without improvement. Denies any Odynophagia. Denies dysuria, bleeding, pt denies cough, vomiting, diarrhea, body aches, and fever. No chest pain or SOB. No sick contacts. No taste changes. No congestion. Virgilio Matthews MD Attn: [facility],[address] [facility], [place], [id number], [facility] 12/16/2023 12:25:05 OBGyn Episode No OBEpisode recorded.
[2024-04-29 10:53] VITALS: BP 125/96; PULSE 125; RESP 20; TEMP 37.7
--- NOTE | 2024-04-29 11:38 | ED_ITS ---
HPI - Abdominal Pain General Chief Complaint: Abdominal Pain Stated Complaint: Abdominal Pain Time Seen by Provider: 04/29/24 11:30 Source: patient, RN notes reviewed and old records reviewed Mode of arrival: ambulatory Limitations: no limitations History of Present Illness HPI narrative: 19 year old female who presents to [facility] care with complaints of naval region abdominal pain with lower back pain which started at 0430 this morning. Patient reports chills, nausea ,vomiting and diarrhea also starting at time of pain with some headache pain.. Patient has palpable pain at naval area with no McBurney point tenderness. Patent denies any burning or any pain with urination or any other urinary symptoms. Patient states that she took some Pepto Bismol and has been able to keep a small glass of hood rhonda down only today. Patient reports last menses 2 days ago. Patient denies noted in blood in stools or in emesis. MD elicited complaint: abdominal pain Onset (ago): hour(s) (0430) Pain Consistency: constant Location: other (naval region and lower back) Pain scale (0-10): 8 Treatments prior to arrival: other (Pepto Bismol) Related Data Home Medications ?Medication ?Instructions ?Recorded ?Confirmed ?Last Taken ?Type No Home Medications 04/29/24 04/29/24 Unknown History Allergies Allergy/AdvReac Type Severity Reaction Status Date / Time No Known Allergies Allergy Verified 04/29/24 11:23 Review of Systems Review of Systems: CONSTITUTIONAL: states has felt feverish, +chills, or sweats. ENT: Denies rhinorrhea, congestion, sore throat, or otalgia. CARDIOVASCULAR: Denies chest pain, palpitations, or edema. RESPIRATORY: Denies cough or dyspnea. GASTROINTESTINAL: Reports abdominal pain, at naval region positive for nausea, vomiting, diarrhea. GENITOURINARY: Denies dysuria or hematuria. SKIN: Denies rash or itching. MUSCULOSKELETAL: Reports low back pain, no joint pain, or myalgia. NEUROLOGIC: Reports headache,no numbness, or weakness. All systems reviewed & are unremarkable except as noted in HPI and below PMFSH Past Medical History Medical History Healthy adolescent Social History Social History Smoking status: Never smoker Gender identity (if verbalized by the patient): Female Comments At time of signature, agree with nursing past medical, surgical, social and f amily history. There is no relevant family history pertinent to the presenting complaint Exam Narrative: GENERAL:ill-appearing, well-nourished, and in some acute distress related to abdominal pain. HEAD: Normocephalic, atraumatic. EYES: PERRLA, conjunctivae clear, and EOMI. ENT: Nares clear. Mucous membranes moist. Oropharynx without edema, erythema, or lesions. Tonsils not enlarged and without exudate. NECK: Supple. No lymphadenopathy CHEST: Speaks in full sentences. No respiratory distress.SAO2 98% on room air HEART: Regular rate and rhythm. ABDOMEN: Soft, flat, nondistended. positive guarding at naval region no radiation of pain or , rebound tenderness, or rigidity. No pulsatilla masses. Bowel sounds present in all four quadrants. No organomegaly. Negative Daniels?s sign. Pain at naval region increased with palpation no McBurney point tenderness.. No Supra public tenderness or distension. Good femoral pulses bilaterally. No hernia noted. No scars or surface trauma. SKIN: Warm, dry, no rash. NEURO:? Alert and oriented x3. PSYCH: Normal mood and affect Course Course Emergency Course: Patient is aware of diagnosis, understands and agrees to treatment plan.? Anticipatory guidance given.? Patient agrees and is aware of reasons to seek care at the emergency department. Portions of this record may have been created with voice recognition software Call placed to Ed at [facility] with condition update, area of pain, labs test results and past medical history reviewed with Level of Care: Express Care Visit Vital Signs Vital signs: Vital Signs Temperature 37.7 C H 04/29/24 10:53 Pulse Rate 125 H 04/29/24 10:53 Respiratory Rate 04/29/24 10:53 Blood Pressure 125/96 H 04/29/24 10:53 Oxygen Delivery Room Air 04/29/24 10:53 Temperature 37.7 C H 04/29/24 10:53 Pulse Rate 125 H 04/29/24 10:53 Respiratory Rate 04/29/24 10:53 Blood Pressure 125/96 H 04/29/24 10:53 Oxygen Delivery Room Air 04/29/24 10:53 Reviewed Transfer Transfered to: [facility] Transportation: Other (per private car with mother) Transfer rationale: Abdominal pain at naval area and low back pain, Nausea, vomiting and diarrhea chills and low grade fever since 0430 pain 8/10 increases with palpation needs higher level of care. Accepting physician: Elidia Transfer comments: Transferred per private car with mother to [facility] ED for fu rther evaluation. MDM - Abdominal Pain MDM Narrative Medical decision making narrative: No evidence of pancreatitis, AAA, cholecystitis, choledocholithiasis, cholangitis, mesenteric ischemia, small bowel obstruction, diverticulitis, colitis, appendicitis, or pelvic etiology such as ovarian/testicular torsion, TOA, or ectopic .? Patient has no history of peptic ulcer, H. pylori, chronic aspirin NSAID or corticosteroid use, chronic alcohol use, no history of inflammatory bowel disease, no history of active abdominal infection or malignancy.? Patient has no history of hernia or intra-abdominal surgeries, patient denies absence of flatus, constipation, melena, hematemesis. Patient denies post-prandial pain. No pain-out of proportion. [id number] Call placed to Ed at [facility] with condition update, area of pain, labs test results and past medical history reviewed with Meera RAGLAND with Dr Brenner accepting patient for transfer Differential Diagnosis Differential diagnosis: Likely abdominal pain, calculus of kidney, small bowel obstruction and other (torsion of ovary) Medical Records Attestation: I reviewed the patient's medical records. Lab Data Attestation: I reviewed the patient's lab results. Lab results narrative: reviewed urine dip 3+ blood patient is on menses 2+ protein, negative for leukocytes yellow and cloudy in appearance Influenza A negative, Influenza B negative, COVID antigen negative, urine HCG negative Labs: Lab Results 04/29/24 04/29/24 Range/Units 12:22 12:35 POC Urine Color Yellow POC Urine Clarity Cloudy POC Urine pH 5.5 POC Ur Specif Zion 1.030 POC Urine Protein 2+ (Negative) POC Ur Glucose (UA) Negative (Negative) POC Urine Ketones Negative (Negative) POC Urine Blood 3+ (Negative) POC Urine Nitrite Negative (Negative) POC Urine Bilirubin Negative (Negative) POC Urine Urobilinogen 0.2 POC U Leukocyte Esteras Negative (Negative) POC Urine HCG, Qual Negative (Negative) POC Influenza A Ag Negative (Negative) POC Influenza B Ag Negative (Negative) POC SARS CoV-2 Ag Negative (Negative) Critical Care Time Critical Care Time Critical Care Time: No Discharge Plan Discharge Clinical Impression: Abdominal pain Qualifiers: Abdominal location: periumbilical Qualified Code(s): R10.33 - Periumbilical pain Patient Disposition: Acute Care Hospital Condition: Stable Patient Language: Micronesian Prescriptions: No Action No Home Medications Follow-up/Referrals: [facility],Healthcare [Primary Care Provider] - Time of Disposition: 12:54 Quality [place] Coma Scale Eyes: Open Verbal: Oriented and Alert Motor: Follows Commands [place] Coma Total Score: 15
[2024-04-29 12:25] LABS: EDCOVIDSCREEN Negative (Negative); EDINFLUASCREEN Negative (Negative); EDINFLUBSCREEN Negative (Negative); EDUAAPPEAR Cloudy; EDUABILI Negative (Negative); EDUABLOOD 3+ (Negative); EDUACOLOR1 Yellow; EDUAGLUCOSE Negative (Negative); EDUAKETONE Negative (Negative); EDUALEUKO Negative (Negative); EDUANITRATE Negative (Negative); EDUAPH 5.5; EDUAPROTEIN 2+ (Negative); EDUAUROBILI 0.2
[2024-04-29 13:00] LABS: BEDSIDEPREGUCG Negative (Negative)
== END 2024-04-29 12:54 | disposition short-term general hospital (02) ==
PROVIDERS: Emergency Provider Registered Nurse
DX: R10.33 Periumbilical pain (principal); Z20.822 Contact with and (suspected) exposure to COVID-19
CPT/HCPCS: 81003; 81025; 87426; 87804; 99212; G0463

== ENCOUNTER 2024-11-07 11:37 | Emergency (ER) | payer OTHER, SELFPAY ==
[2024-11-07 11:50] VITALS: BP 125/95; PULSE 94; RESP 20; TEMP 37; O2SAT 96
--- NOTE | 2024-11-07 12:19 | ED_ITS ---
HPI - General Adult General Chief complaint: Urogenital-Female Stated complaint: std testing Source: patient Mode of arrival: ambulatory Limitations: no limitations History of Present Illness HPI narrative: Patient presents requesting STI testing. She indicates the purpose for testing is she currently has any new male sex partner. She denies any urinary symptoms, vaginal bleeding/discharge, abdominal pain, low back pain, fever or chills. She uses condoms sometimes. She is not on any contraception. LMP April of this year. She has PCOS. She engages in receptive vaginal intercourse, but denies oral or rectal sexual practices. Related Data Home Medications ?Medication ?Instructions ?Recorded ?Confirmed ?Last Taken ?Type No Home Medications 04/29/24 11/07/24 Unknown History Allergies Allergy/AdvReac Type Severity Reaction Status Date / Time clindamycin Allergy Mild Hives Verified 11/07/24 11:58 Review of Systems Review of Systems: CONSTITUTIONAL: Denies fever, chills, or sweats. EYES: Denies visual changes, redness, or discharge. ENT: Denies rhinorrhea, congestion, sore throat, or otalgia. CARDIOVASCULAR: Denies chest pain, palpitations, or edema. RESPIRATORY: Denies cough or dyspnea. GASTROINTESTINAL: Denies abdominal pain, nausea, vomiting, or diarrhea. GENITOURINARY: Denies dysuria or hematuria. SKIN: Denies rash or itching. MUSCULOSKELETAL: Denies back pain, joint pain, or myalgia. NEUROLOGIC: Denies headache, numbness, dizziness, or weakness. PSYCHIATRIC: Denies anxiety or depression. [facility] Past Medical History Medical History PCOS (polycystic ovarian syndrome) Healthy adolescent Surgical History Surgical History No pertinent past surgical history Family History Family History Mother Family history non-contributory Social History Social History Smoking status: Never smoker Substance use: never Gender identity (if verbalized by the patient): Female Sexual Orientation (if Verbalized by the Patient): Straight or Heterosexual Spiritual care concerns: No Exam Narrative: GENERAL: Well-appearing, well-nourished, and in no acute distress. HEAD: Normocephalic, atraumatic. EYES: PERRLA and EOMI. ENT: Nares clear, no rhinorrhea or epistaxis. Mucous membranes moist. Harmeet pharynx without tonsillar hypertrophy exudate or other lesions. Bilateral TMs pearly avila nonbulging NECK: Supple. No adenopathy or masses. No carotid bruits or JVD CHEST: Clear to auscultation. No respiratory distress. No wheezes rales or rhonchi HEART: Regular rate and rhythm. No murmur heard. Normal peripheral pulses. ABDOMEN: Soft, nontender, nondistended, normal active bowel sounds. EXTREMITIES: Normal range of motion. No edema. SKIN: Warm, dry, no rash. NEURO: No focal deficits. Alert and oriented x3. PSYCH: Normal mood and affect. Course Course Emergency Course: This is a 19-year-old female who presented for STI testing. She is asymptomatic. I offered testing, which she declined. Will send off samples for gonorrhea, chlamydia, Trichomonas. She should have a comprehensive STI evaluation performed. Reviewed safe sex practices. Follow up with primary care provider. Go to the ER for worsening symptoms. Pt in agreement with plan of care. Level of Care: Express Care Visit Vital Signs Vital signs: Vital Signs Temperature 37.0 C 11/07/24 11:50 Pulse Rate 94 11/07/24 11:50 Respiratory Rate 20 11/07/24 11:50 Blood Pressure 125/95 H 11/07/24 11:50 Pulse Oximetry 96 11/07/24 11:50 Oxygen Delivery Room Air 11/07/24 11:50 Temperature 37.0 C 11/07/24 11:50 Pulse Rate 94 11/07/24 11:50 Respiratory Rate 20 11/07/24 11:50 Blood Pressure 125/95 H 11/07/24 11:50 Pulse Oximetry 96 11/07/24 11:50 Oxygen Delivery Room Air 11/07/24 11:50 Medical Decision Making Vital Signs Vital Signs: Vital Signs Temperature 37.0 C 11/07/24 11:50 Pulse Rate 94 11/07/24 11:50 Respiratory Rate 20 11/07/24 11:50 Blood Pressure 125/95 H 11/07/24 11:50 Pulse Oximetry 96 11/07/24 11:50 Oxygen Delivery Room Air 11/07/24 11:50 Temperature 37.0 C 11/07/24 11:50 Pulse Rate 94 11/07/24 11:50 Respiratory Rate 20 11/07/24 11:50 Blood Pressure 125/95 H 11/07/24 11:50 Pulse Oximetry 96 11/07/24 11:50 Oxygen Delivery Room Air 11/07/24 11:50 Discharge Plan Discharge Clinical Impression: Routine screening for STI (sexually transmitted infection) Patient Disposition: Home Condition: Stable Instructions: Antibiotic Form, Safe Sex Practices (ED) Patient Language: Maltese Prescriptions: No Action No Home Medications Follow-up/Referrals: Cornelio,Christy [Other] Time of Disposition: 12:07
[2024-11-07 19:59] LABS: Trichomonas Vag PCR NOT DETECTED (NOT DETECTE)
== END 2024-11-07 12:12 | disposition home or self-care (01) ==
PROVIDERS: Emergency Provider Nurse Practitioner
DX: Z11.3 Encounter for screening for infections with a predominantly sexual mode of transmission (principal)
CPT/HCPCS: 87491; 87591; 87661; 99213; G0463